=== PATIENT | male | born 1990 | race African-American/Black ===

== ENCOUNTER 2017-08-03 14:37 | Emergency (ER) | payer SELFPAY ==
[2017-08-03 15:05] VITALS: BP 146/75; PULSE 88; TEMP 98.3; BMI 52.3
--- NOTE | 2017-08-03 15:08 | PDOC ---
History of Present Illness - General Chief Complaint: Injury Stated Complaint: INJURY Time Seen by Provider: 08/03/17 14:55 History Source: Patient Exam Limitations: No Limitations - History of Present Illness Initial Comments: 08/04/17 for fractures to right wrist while playing basketball yesterday. Used ice and took some Motrin with minimal resolved. States has pain with flexion and extension although feels good strength to fingers. 0 Occurred: reports: this afternoon Severity: reports: mild Pain Location: reports: upper extremity (right wrist ) Associated Symptoms (Fall): denies symptoms Past History - Travel Traveled outside of the country in the last 30 days: No Close contact w/someone who was outside of country & ill: No - Past Medical History Allergies/Adverse Reactions: Allergies Allergy/AdvReac Type Severity Reaction Status Date / Time No Known Allergies Allergy Verified 10/10/14 00:03 Home Medications: Ambulatory Orders Albuterol Sulfate Inhaler - [Ventolin HFA Inhaler -] 1 - 2 inh PO Q4H 08/26/14 Oxycodone HCl/Acetaminophen [Percocet 5-325 mg Tablet -] 1 - 2 tab PO Q4H PRN # 7 tablet MDD 4 08/03/17 Asthma: Yes COPD: Yes - Immunization History Td Vaccination: Yes Immunization Up to Date: Yes - Suicide/Smoking/Psychosocial Hx Smoking Status: Yes Smoking History: Never smoked Have you smoked in the past 12 months: Yes Number of Cigarettes Smoked Daily: 2 Information on smoking cessation initiated: No 'Breaking Loose' booklet given: 09/25/13 Hx Alcohol Use: No Drug/Substance Use Hx: No Substance Use Type: None Trauma Specific PMHX - Complaint Specific PMHX Back Injury: No Neck Injury: No Review of Systems - Review of Systems Able to Perform ROS?: Yes Is the patient limited Sinhala proficient: Yes Constitutional: Yes: Symptoms Reported, See HPI, Malaise HEENTM: No: Symptoms Reported Respiratory: No: Symptoms reported Musculoskeletal: Yes: Symptoms Reported, See HPI, Joint Pain, Joint Swelling All Other Systems: Reviewed and Negative *Physical Exam - Vital Signs Last Vital Signs Temp Pulse Resp BP Pulse Ox 98.3 F 88 18 146/75 99 08/03/17 14:53 08/03/17 14:53 08/03/17 14:53 08/03/17 14:53 08/03/17 14:53 - Physical Exam General Appearance: Yes: Nourished, Appropriately Dressed, Apparent Distress HEENT: positive: UDAY, Normal ENT Inspection, TMs Normal, Pharynx Normal Neck: positive: Supple. negative: Tender Gastrointestinal/Abdominal: positive: Soft. negative: Tender Musculoskeletal: positive: Normal Inspection Extremity: positive: Normal Capillary Refill. negative: Normal Range of Motion (limited due to swelling adn pain , worse with flexion at joint . 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 splinted and weill F/U with Ortho *DC/Admit/Observation/Transfer Diagnosis at time of Disposition: Left wrist sprain Qualifiers: Encounter type: initial encounter Qualified Code(s): S63.502A - Unspecified sprain of left wrist, initial encounter - Discharge Dispostion Disposition: HOME Condition at time of disposition: Stable Admit: No - Prescriptions Prescriptions: Oxycodone HCl/Acetaminophen [Percocet 5-325 mg Tablet -] 1 - 2 tab PO Q4H PRN # 7 tablet MDD 4 PRN Reason: Pain - Referrals Referrals: Konstantin Beckham MD [Primary Care Provider] - Chaz Hou MD [Staff Physician] - - Patient Instructions Printed Discharge Instructions: DI for Wrist Sprain Additional Instructions: Rest, ice to area on and off for 15 minutes 4-6 times a day Avoid heavy lifting or exercise until pain and swelling is resolved or until further directed Keep area highly elevated to reduce swelling Use splints/Nadeem wrap as directed Followup with orthopedist in one to 2 days if not improving, if significantly improved may wait one week for followup with orthopedist May use ibuprofen 2-200 mg tablets every 6 hours as needed for pain Percocet tablet for severe pain today - Post Discharge Activity Forms/Work/School Notes: Back to Work
== END 2017-08-03 15:57 | disposition home or self-care (01) ==
LOC: SUPCPDRO 14:37 → JERFT 14:37
PROC: 2W3CX1Z Immobilization of Right Lower Arm using Splint (ICD-10-PCS; principal; 2017-08-03)
DX: S63.502A Unspecified sprain of left wrist, initial encounter (principal); X58.XXXA Exposure to other specified factors, initial encounter; Y93.89 Activity, other specified; Y92.9 Unspecified place or not applicable; J45.909 Unspecified asthma, uncomplicated; J44.9 Chronic obstructive pulmonary disease, unspecified; Z72.0 Tobacco use
CPT/HCPCS: 73110-TC-RT; 99281-25

== ENCOUNTER 2017-08-05 17:14 | Emergency (ER) | payer SELFPAY ==
[2017-08-05 17:29] VITALS: BP 140/87; PULSE 86; TEMP 97.7; BMI 23.7
--- NOTE | 2017-08-05 18:17 | PDOC ---
History of Present Illness - General Chief Complaint: Injury Stated Complaint: HAND INJURY Time Seen by Provider: 08/05/17 17:32 - History of Present Illness Initial Comments: 08/05/17 18:14 Chief complaint: Hand injury and request for asthma medicine Patient 27-year-old male who was seen here 2 days ago had x-ray of the wrist which was read as negative but he said he was told that there was something at the base of one of his fingers and was wearing a splint but the splint got dirty and wet. He is also requesting asthma medications. He is asymptomatic at this point regarding the asthma. He states he's trying to figure out his insurance with the orthopedist GENERAL/CONSTITUTIONAL: No fever, weakness. dizziness HEAD, EYES, EARS, NOSE AND THROAT: No change in vision. No ear pain or discharge. No sore throat. CARDIOVASCULAR: No chest pain RESPIRATORY: No shortness of breath or cough GASTROINTESTINAL: No pain, nausea, vomiting, diarrhea or constipation GENITOURINARY: No dysuria MUSCULOSKELETAL: No neck or back pain, + right hand SKIN: No rash NEUROLOGIC: No headache, vertigo, loss of consciousness, or loss of sensation. GENERAL: The patient is awake, alert, and fully oriented, in no acute distress. HEAD: Normal with no signs of trauma. EYES: Pupils equal, round and reactive to light, sclera anicteric, conjunctiva clear. ENT: pharynx: no erythema, no exudate, uvula midline NECK: supple CHEST: clear, nontender, rr ABD: soft, nontender EXTREMITIES: Right hand with mild tenderness to the dorsum laterally, no deformity or ecchymosis, full range of motion. Neurovascular intact. Rest of extremities, normal range of motion, no edema. NEUROLOGICAL: Normal speech, normal gait. SKIN: Warm, Dry Past History - Past Medical History Allergies/Adverse Reactions: Allergies Allergy/AdvReac Type Severity Reaction Status Date / Time No Known Allergies Allergy Verified 08/05/17 17:24 Home Medications: Ambulatory Orders Albuterol Sulfate Inhaler - [Ventolin HFA Inhaler -] 1 - 2 inh PO Q4H 08/26/14 Oxycodone HCl/Acetaminophen [Percocet 5-325 mg Tablet -] 1 - 2 tab PO Q4H PRN # 7 tablet MDD 4 08/03/17 Albuterol Sulfate Inhaler - [Ventolin HFA Inhaler -] 2 inh PO Q6H #1 inh Asthma: Yes COPD: Yes - Immunization History Td Vaccination: Yes Immunization Up to Date: Yes - Suicide/Smoking/Psychosocial Hx Smoking Status: Yes Smoking History: Current every day smoker Have you smoked in the past 12 months: Yes Number of Cigarettes Smoked Daily: 3 Information on smoking cessation initiated: Yes 'Breaking Loose' booklet given: 08/05/17 Hx Alcohol Use: No Drug/Substance Use Hx: No Substance Use Type: None *Physical Exam - Vital Signs Last Vital Signs Temp Pulse Resp BP Pulse Ox 97.7 F 86 18 140/87 100 08/05/17 17:21 08/05/17 17:21 08/05/17 17:21 08/05/17 17:21 08/05/17 17:21 Medical Decision Making - Medical Decision Making 08/05/17 18:15 Review previous visit, x-ray was read as negative, I reviewed the x-ray and saw what might be the issue at the base of the fourth proximal metacarpal area discussed this with the patient, resplinted his hand and gave him a prescription for albuterol inhaler as requested. Patient will follow-up with his primary care doctor for any other issues regarding his asthma *DC/Admit/Observation/Transfer Diagnosis at time of Disposition: Hand injury Qualifiers: Encounter type: sequela Laterality: right Qualified Code(s): S69.91XS - Unspecified injury of right wrist, hand and finger(s), sequela; S69.91XS - Unspecified injury of right wrist, hand and finger(s), sequela - Discharge Dispostion Disposition: HOME Condition at time of disposition: Stable Admit: No - Prescriptions Prescriptions: Albuterol Sulfate Inhaler - [Ventolin HFA Inhaler -] 2 inh PO Q6H #1 inh - Referrals Referrals: Konstantin Beckham MD [Primary Care Provider] - Wali Robles MD [Staff Physician] - Glenn Bautista MD [Staff Physician] - - Patient Instructions Additional Instructions: Elevate, wear splint Motrin 600 mg every 6 hours for pain. Call the orthopedist tomorrow
== END 2017-08-05 18:50 | disposition home or self-care (01) ==
LOC: JERFT 17:14
PROC: 2W3CX1Z Immobilization of Right Lower Arm using Splint (ICD-10-PCS; principal; 2017-08-05)
DX: S69.91XS Unspecified injury of right wrist, hand and finger(s), sequela (principal); X58.XXXS Exposure to other specified factors, sequela; Y92.9 Unspecified place or not applicable
CPT/HCPCS: 99282-25

== ENCOUNTER 2021-11-12 11:41 | Emergency (ER) | payer BC, OTHER ==
[2021-11-12 11:59] VITALS: BP 140/87; PULSE 106; TEMP 98.2; BMI 23.7
== END 2021-11-12 12:36 | disposition home or self-care (01) ==
LOC: JER 11:41
DX: J45.20 Mild intermittent asthma, uncomplicated (principal)
CPT/HCPCS: 99281-25

== ENCOUNTER 2024-01-05 11:27 | Emergency (ER) | payer BC, OTHER ==
[2024-01-05 11:48] VITALS: BMI 24.4
[2024-01-05] MEDS ORDERED: ACETAMINOPHEN 500 MG TABLET (FP) ONE (12:24)
[2024-01-05] MEDS ORDERED: IBUPROFEN 400 MG TABLET (FP) PO ONE (12:24)
[2024-01-05] MEDS: ACETAMINOPHEN 500 MG TABLET (FP) PO ONE (12:26)
[2024-01-05] MEDS: IBUPROFEN 400 MG TABLET (FP) PO ONE (12:26)
[2024-01-05] MEDS ORDERED: OSELTAMIVIR PHOSPHATE 75 MG CAPSULE ONE (13:22)
[2024-01-05] MEDS: OSELTAMIVIR PHOSPHATE 75 MG CAPSULE PO ONE (13:23)
[2024-01-05 13:34] VITALS: BP 114/75; PULSE 99; RESP 19; TEMP 98.3
== END 2024-01-05 13:43 | disposition home or self-care (01) ==
LOC: JERFT 11:27
DX: J10.1 Influenza due to other identified influenza virus with other respiratory manifestations (principal); J06.9 Acute upper respiratory infection, unspecified; B34.9 Viral infection, unspecified; R09.81 Nasal congestion; J39.2 Other diseases of pharynx; R51.9 Headache, unspecified; R07.0 Pain in throat; R05.9 Cough, unspecified; M79.10 Myalgia, unspecified site; R09.89 Other specified symptoms and signs involving the circulatory and respiratory systems; Z20.822 Contact with and (suspected) exposure to COVID-19
CPT/HCPCS: 0241U-QW; 99282-25